=== PATIENT | male | born 1970 | race Caucasian/White ===

== ENCOUNTER 2021-02-12 09:24 | Day surgery (SDC) | payer BC | END 2021-02-12 23:31 | disposition home or self-care (01) | LOC: ORSCMMR 09:24 → RAD 09:24 → ORSCMMR 09:25 → RAD 10:00 | DX: M54.41 Lumbago with sciatica, right side (principal); G89.29 Other chronic pain; R29.898 Other symptoms and signs involving the musculoskeletal system; M62.830 Muscle spasm of back; M48.061 Spinal stenosis, lumbar region without neurogenic claudication; M51.36 Other intervertebral disc degeneration, lumbar region | CPT/HCPCS: 62304; 72040; 72072; 72132; Q9966 ==